=== PATIENT | male | born 1960 | race Caucasian/White ===

== ENCOUNTER → 2018-06-09 | Day surgery (SDC) | payer OTHER ==
[~2018-06-09] VITALS: Ht 167.6 cm; Wt 88.5 kg
[~2018-06-09] MED LIST: GLUCOPHAGE1000 MG PO
[2018-06-09 08:04] VITALS: BP 145/93
[2018-06-09 09:00] VITALS: BP 126/82
[2018-06-09 09:15] VITALS: BP 118/79
[2018-06-09 09:30] VITALS: BP 127/82
[2018-06-09 09:43] VITALS: BP 120/75
== END | disposition home or self-care (01) ==
LOC: SDC 06-05 08:00
DX: K94.29 Other complications of gastrostomy (principal); K29.70 Gastritis, unspecified, without bleeding; K21.9 Gastro-esophageal reflux disease without esophagitis; I25.2 Old myocardial infarction; I10 Essential (primary) hypertension; I25.10 Atherosclerotic heart disease of native coronary artery without angina pectoris; E11.9 Type 2 diabetes mellitus without complications; E78.00 Pure hypercholesterolemia, unspecified; Z88.0 Allergy status to penicillin; Z88.1 Allergy status to other antibiotic agents; Z88.2 Allergy status to sulfonamides; Z98.890 Other specified postprocedural states; Z95.818 Presence of other cardiac implants and grafts; Z79.899 Other long term (current) drug therapy; Z95.5 Presence of coronary angioplasty implant and graft